=== PATIENT | female | born 1940 | race Two or more races ===

== ENCOUNTER 2018-10-01 15:39 | Emergency (ER) | payer MEDICARE, OTHER ==
[~2018-10-01] VITALS: Ht 149.9 cm; Wt 52.2 kg
--- NOTE | 2018-10-01 15:50 | NUR ---
C/O CONSTIPATION, LAST BM YESTERDAY. DENIES ABDOMINAL PAIN, N/V. NO OTHER COMPLAINTS AT THIS TIME. PLACED IN GOWN AND MADE COMFORTABLE. READY FOR EVAL.
[2018-10-01] MEDS ORDERED: IV NS 0.9% 1,000 ML BAG IV ONE (16:00)
[2018-10-01 16:05] LABS: BASOPHILS % (AUTO) 0.5 % (0.0-2.0); EOSINOPHILS % (AUTO) 0.6 % (0.0-6.0); HEMATOCRIT 38 % (33-45); HEMOGLOBIN 12.8 g/dL (11.5-14.8); LYMPHOCYTES # (AUTO) 1.7 /CMM (0.8-4.8); LYMPHOCYTES % (AUTO) 18.2 % (20.0-44.0); MEAN CORPUSCULAR HGB CONC 34 g/dl (31.0-36.0); MEAN CORPUSCULAR VOLUME 81 fL (82-100); MONOCYTES # (AUTO) 0.4 /CMM (0.1-1.30); MONOCYTES % (AUTO) 4.8 % (2.0-12.0); NEUTROPHILS % (AUTO) 75.9 % (43.0-81.0); PLATELET COUNT (AUTO) 253 /CMM (150-450); RED BLOOD CELL COUNT(AUTO) 4.65 MIL/uL (4.0-5.2); WHITE BLOOD COUNT (AUTO) 9.2 K/uL (4.3-11.0)
[2018-10-01 16:24] LABS: CALCIUM, SERUM 8.7 mg/dL (8.5-10.1); CARBON DIOXIDE 24 mmol/L (21-32); CHLORIDE 86 mmol/L (98-107); CREATININE 0.6 mg/dL (0.6-1.3); GLUCOSE 100 mg/dL (74-106); POTASSIUM 3.5 mmol/L (3.5-5.1); UREA NITROGEN, BLOOD 12 mg/dL (7-18)
[2018-10-01 16:25] LABS: SODIUM SERUM 120 mmol/L (136-145)
[2018-10-01 16:33] LABS: BILIRUBIN,DIRECT 0.2 mg/dL (0.0-0.2); BILIRUBIN,TOTAL 0.7 mg/dL (0.2-1.0)
[2018-10-01 16:34] LABS: ALKALINE PHOSPHATASE 85 U/L (46-116); ASPARTATE AMINOTRANSFERASE 39 U/L (15-37)
[2018-10-01 16:35] LABS: ALANINE AMINOTRANSFERASE 38 U/L (12-78); ALBUMIN 3.6 g/dL (3.4-5.0); LIPASE 72 U/L (73-393); TOTAL PROTEIN, SERUM 6.8 g/dL (6.4-8.2)
--- NOTE | 2018-10-01 16:40 | NUR ---
URINE COLLECTED AND SENT TO STAT LAB
[2018-10-01 16:54] LABS: BILIRUBIN,URINE Negative (NEGATIVE); BLOOD, URINE Trace-intact Ery/uL (NEGATIVE); COLOR,URINE Yellow (YELLOW); KETONES,URINE 40 (NEGATIVE); LEUKOCYTE ESTERASE ,URINE Negative (NEGATIVE); NITRITE, URINE Negative (NEGATIVE); PH,URINE 7.5 (5.0-8.0); PROTEIN,URINE Negative (NEGATIVE); UGLUCOSE Negative (NEGATIVE); UROBILINOGEN,URINE 0.2 EU/dL (0.2)
[2018-10-01 16:55] LABS: APPEARANCE,URINE SLIGHTLY HAZY (CLEAR)
[2018-10-01 17:12] LABS: SQUAMOUS EPITHELIAL CELL,UR Few /HPF (None Seen)
[2018-10-01 17:13] LABS: BACTERIA,URINE Moderate /HPF (None Seen); WBC,URINE 0-2 /HPF (0-3)
--- NOTE | 2018-10-01 18:15 | NUR ---
IV removed. Catheter intact and site benign. Pressure and 4x4 applied to site. No bleeding noted.Patient discharged to home in stable condition. Written and verbal after care instructions given. Patient verbalizes understanding of instruction.
[2018-10-01 18:26] VITALS: BP 138/82
== END 2018-10-01 18:15 | disposition home or self-care (01) ==
LOC: ER 15:41
DX: K59.00 Constipation, unspecified (principal); R59.0 Localized enlarged lymph nodes; E87.1 Hypo-osmolality and hyponatremia
CPT/HCPCS: 36415; 74176; 80048; 80076; 81001; 83690; 85025; 87086; 99284; J7030; 81000-TC

== ENCOUNTER 2024-09-09 14:14 | Inpatient (IN) | payer MEDICARE, OTHER ==
[~2024-09-09] VITALS: Ht 144.8 cm; Wt 36.7 kg
[2024-09-09 14:30] VITALS: TEMP 98.4
[2024-09-09] MEDS: IV NS 0.9% 1,000 ML BAG IV ONE ×2 (15:00→22:30)
[2024-09-09 15:07] LABS: BASOPHILS % (AUTO) 0.1 % (0.0-2.0); HEMATOCRIT 41 % (33-45); HEMOGLOBIN 13.3 g/dL (11.5-14.8); LYMPHOCYTES # (AUTO) 1.2 K/uL (0.8-4.8); LYMPHOCYTES % (AUTO) 9.5 % (20.0-44.0); MEAN CORPUSCULAR HEMOGLOBIN 27 PG (26.0-33.0); MEAN CORPUSCULAR HGB CONC 32 g/dl (31.0-36.0); MEAN CORPUSCULAR VOLUME 83 fL (82-100); MONOCYTES # (AUTO) 0.8 K/uL (0.1-1.30); MONOCYTES % (AUTO) 6.9 % (2.0-12.0); NEUTROPHILS # (AUTO) 10.1 K/uL (1.8-8.9); NEUTROPHILS % (AUTO) 83.5 % (43.0-81.0); PLATELET COUNT (AUTO) 365 K/uL (150-450); RED BLOOD CELL COUNT(AUTO) 4.96 MIL/uL (4.0-5.2); RED CELL DISTRIBUTION WIDTH 13.7 % (11.5-15.0); WHITE BLOOD COUNT (AUTO) 12.2 K/uL (4.3-11.0)
[2024-09-09 15:20] LABS: CALCIUM, SERUM 9.6 mg/dL (8.5-10.1); CARBON DIOXIDE 22 mmol/L (21-32); CHLORIDE 96 mmol/L (98-107); CREATININE 0.7 mg/dL (0.6-1.3); GLUCOSE 119 mg/dL (74-106); POTASSIUM 3.5 mmol/L (3.5-5.1); SODIUM SERUM 133 mmol/L (136-145); UREA NITROGEN, BLOOD 44 mg/dL (7-18)
[2024-09-09 15:22] LABS: ALANINE AMINOTRANSFERASE 61 U/L (12-78); ALBUMIN 4.8 g/dL (3.4-5.0); ALKALINE PHOSPHATASE 98 U/L (46-116); ASPARTATE AMINOTRANSFERASE 93 U/L (15-37); BILIRUBIN,DIRECT 0.3 mg/dL (0.0-0.2); BILIRUBIN,TOTAL 1.2 mg/dL (0.2-1.0); TOTAL PROTEIN, SERUM 7.6 g/dL (6.4-8.2)
[2024-09-09] MEDS ORDERED: SODI100037 PO (16:22)
[2024-09-09] MEDS ORDERED: LEVO25TA9 PO (16:22)
[2024-09-09] MEDS ORDERED: VITA-339 PO (16:24)
[2024-09-09] MEDS ORDERED: ONDANSETRON HCL/PF 4 MG/2 ML VIAL IVP PRN (16:30)
[2024-09-09] MEDS ORDERED: ACETAMINOPHEN 325 MG TABLET PO PRN (16:30)
[2024-09-09] MEDS ORDERED: MAG HYDROX/AL HYDROX/SIMETH 30 ML UDC PO PRN (16:30)
[2024-09-09] MEDS ORDERED: ZOLPIDEM TARTRATE 5 MG TABLET PO PRN (16:30)
[2024-09-09] MEDS ORDERED: MAGNESIUM HYDROXIDE 30 ML UDC PO PRN (16:30)
[2024-09-09] MEDS ORDERED: IV NS 0.9% 1,000 ML IV PRN (16:30)
[2024-09-09] MEDS ORDERED: Z GUARD REMEDY 4 OZ OINT TP PRN (16:30)
[2024-09-09 22:00] VITALS: BP 120/64; O2SAT 99
[2024-09-10] MEDS ORDERED: PANTOPRAZOLE 40 MG TABLET.DR PO SCH (07:30)
== END 2024-09-09 19:51 | disposition short-term general hospital (02) | DRG 86 ==
LOC: ER 14:31 → TELE 16:17
PROVIDERS: ADMIT Nurse Practitioner Acute Care; ATTEND Nurse Practitioner Acute Care
DX: S06.5X0A Traumatic subdural hemorrhage without loss of consciousness, initial encounter (principal); M62.82 Rhabdomyolysis; R64 Cachexia; Z68.1 Body mass index [BMI] 19.9 or less, adult; S30.0XXA Contusion of lower back and pelvis, initial encounter; S40.012A Contusion of left shoulder, initial encounter; Y92.039 Unspecified place in apartment as the place of occurrence of the external cause; W19.XXXA Unspecified fall, initial encounter; Z79.890 Hormone replacement therapy
CPT/HCPCS: 36415; 70450-TC; 71045-TC; 72125-TC; 72170-TC; 73060-TC; 73080-TC; 73502; 80048-TC; 80076-TC; 82550-TC; 82553; 84484-TC; 85025-TC; G0378

== ENCOUNTER 2024-12-17 12:58 | Inpatient (IN) | payer MEDICARE, OTHER ==
[~2024-12-17] VITALS: Ht 154.9 cm; Wt 41.7 kg
[~2024-12-17 12:58] MED LIST: LEVO25TA9 PO; SODI100037 PO; VITA-339 PO
[2024-12-17] MEDS ORDERED: MORPHINE SULFATE INJ 2 MG/ML DISP.SYRIN ONE (13:28)
[2024-12-17] MEDS ORDERED: ONDANSETRON HCL/PF 4 MG/2 ML VIAL ONE (13:28)
[2024-12-17] MEDS: IV NS 0.9% 500 ML BAG IV ONE (13:30)
[2024-12-17] MEDS: MORPHINE SULFATE INJ 2 MG/ML DISP.SYRIN IV ONE (13:33)
[2024-12-17] MEDS: ONDANSETRON HCL/PF 4 MG/2 ML VIAL IVP ONE (13:33)
[2024-12-17 13:38] LABS: PLATELET COUNT (AUTO) 269 K/uL (150-450); RED BLOOD CELL COUNT(AUTO) 4.52 MIL/uL (4.0-5.2); RED CELL DISTRIBUTION WIDTH 13.8 % (11.5-15.0); WHITE BLOOD COUNT (AUTO) 11.1 K/uL (4.3-11.0)
[2024-12-17 13:45] LABS: CALCIUM, SERUM 8.7 mg/dL (8.5-10.1); CREATININE 0.7 mg/dL (0.6-1.3); SODIUM SERUM 133.0 mmol/L (136-145); UREA NITROGEN, BLOOD 20.0 mg/dL (7-18)
[2024-12-17 13:51] LABS: INR 1.06 (0.91-1.10)
[2024-12-17] MEDS ORDERED: IOHEXOL-300 100 ML VIAL IV ONE (14:07)
[2024-12-17] MEDS ORDERED: IV NS 0.9% 250 ML IV ONE (14:07)
[2024-12-17] MEDS ORDERED: VITAMIN K2 PO SCH (16:00)
[2024-12-17] MEDS ORDERED: ONDANSETRON HCL/PF 4 MG/2 ML VIAL IVP PRN (16:00)
[2024-12-17] MEDS ORDERED: VITAMIN D3 PO SCH (16:00)
[2024-12-17] MEDS ORDERED: MAG HYDROX/AL HYDROX/SIMETH 30 ML UDC PO PRN (16:00)
[2024-12-17] MEDS ORDERED: HYDROCODONE/APAP 5/325MG TABLET PO PRN (16:00)
[2024-12-17 17:10] VITALS: BP 157/89; TEMP 98.5; O2SAT 96
[2024-12-17] MEDS: IV NS 0.9% 1,000 ML IV PRN (17:41)
[2024-12-17] MEDS: SODIUM CHLORIDE 1000 MG TABLET PO SCH (17:41)
[2024-12-17] MEDS: ENOXAPARIN SODIUM 40 MG/0.4 ML DISP.SYRIN SQ SCH (17:42)
[2024-12-17 20:00] VITALS: BP 140/79; TEMP 97.3; O2SAT 96
[2024-12-18 04:00] VITALS: BP 165/82; TEMP 97.2; O2SAT 99
[2024-12-18] MEDS: MORPHINE SULFATE INJ 2 MG/ML DISP.SYRIN IV PRN (04:20)
[2024-12-18 04:46] VITALS: BP 159/86; O2SAT 99
[2024-12-18 07:23] LABS: PLATELET COUNT (AUTO) 239 K/uL (150-450); RED BLOOD CELL COUNT(AUTO) 5.00 MIL/uL (4.0-5.2); RED CELL DISTRIBUTION WIDTH 13.8 % (11.5-15.0); WHITE BLOOD COUNT (AUTO) 8.4 K/uL (4.3-11.0)
[2024-12-18 07:35] LABS: CALCIUM, SERUM 8.4 mg/dL (8.5-10.1); CREATININE 0.7 mg/dL (0.6-1.3); PHOSPHORUS 2.9 mg/dL (2.5-4.9); SODIUM SERUM 132.0 mmol/L (136-145); UREA NITROGEN, BLOOD 11.0 mg/dL (7-18)
[2024-12-18] MEDS: LEVOTHYROXINE SODIUM 25 MCG TABLET PO SCH (08:12)
[2024-12-18 12:00] VITALS: BP 181/87; TEMP 97.7; O2SAT 99
[2024-12-18 20:00] VITALS: BP 176/86; TEMP 98.1; O2SAT 98
[2024-12-19 04:00] VITALS: BP 169/92; TEMP 98; O2SAT 98
[2024-12-19] MEDS: hydrALAZINE HCL IV 20 MG VIAL IV ONE (06:28)
[2024-12-19 09:47] LABS: LDL 83.0 mg/dL (0-99)
[2024-12-19 12:00] VITALS: BP 130/90; TEMP 99.5; O2SAT 100
[2024-12-19] MEDS ORDERED: BUPIVACAINE 0.25% 75 MG/30 ML VIAL ONE (15:26)
[2024-12-19] MEDS ORDERED: ROCURONIUM BROMIDE 50 MG/5 ML ONE (17:27)
[2024-12-19] MEDS ORDERED: TRANEXAMIC ACID 1,000 MG/10 ML VIAL ONE (17:27)
[2024-12-19] MEDS ORDERED: FENTANYL PF 100MCG/2ML AMPUL ONE (17:50)
[2024-12-19] MEDS ORDERED: ALBUMIN 5% 250 ML IV ONE ×2 (18:55→19:02)
[2024-12-19 20:00] VITALS: BP 167/72; TEMP 97.3; O2SAT 98
[2024-12-19] MEDS ORDERED: FENTANYL PF 100MCG/2ML AMPUL IV PRN ×2 (20:30)
[2024-12-19] MEDS ORDERED: ONDANSETRON HCL/PF 4 MG/2 ML VIAL IVP PRN (20:30)
[2024-12-19] MEDS ORDERED: LABETALOL 20 MG/4 ML VIAL IV PRN (20:30)
[2024-12-19 21:15] VITALS: BP 154/83; TEMP 97.3; O2SAT 98
[2024-12-19 21:30] VITALS: BP 146/80; TEMP 97.6; O2SAT 97
[2024-12-19 22:00] VITALS: BP 146/69; TEMP 97.8; O2SAT 98
[2024-12-20] MEDS ORDERED: CEFAZOLIN 2 GM ONE (02:38)
[2024-12-20] MEDS: CEFAZOLIN 2 GM in IV D5W 100 ML IV SCH (02:56)
[2024-12-20] MEDS ORDERED: CEFAZOLIN 2 GM in IV D5W 100 ML IV SCH (03:00)
[2024-12-20 04:00] VITALS: BP 110/60; TEMP 97.9; O2SAT 99
[2024-12-20 06:58] LABS: PLATELET COUNT (AUTO) 195 K/uL (150-450); RED BLOOD CELL COUNT(AUTO) 3.80 MIL/uL (4.0-5.2); RED CELL DISTRIBUTION WIDTH 13.9 % (11.5-15.0); WHITE BLOOD COUNT (AUTO) 10.1 K/uL (4.3-11.0)
[2024-12-20 07:41] LABS: CALCIUM, SERUM 8.3 mg/dL (8.5-10.1); CREATININE 0.5 mg/dL (0.6-1.3); PHOSPHORUS 2.2 mg/dL (2.5-4.9); SODIUM SERUM 131.0 mmol/L (136-145); UREA NITROGEN, BLOOD 11.0 mg/dL (7-18)
[2024-12-20] MEDS: POTASSIUM CHLORIDE 20 MEQ TAB.PRT.SR PO SCH (08:30)
[2024-12-20] MEDS: NEUTRA PHOS 1 POWD.PACKET PO SCH (08:31)
[2024-12-20 16:00] VITALS: BP 141/71; TEMP 98.3; O2SAT 96
[2024-12-20] MEDS: LORAZEPAM 0.5 MG TABLET PO ONE (18:51)
[2024-12-20] MEDS ORDERED: LEVE500T9 PO (19:36)
[2024-12-20] MEDS ORDERED: FAMO-131 PO (19:36)
[2024-12-20 20:00] VITALS: BP 163/86; TEMP 98.1; O2SAT 95
[2024-12-20] MEDS: SENNOSIDES 8.6 MG TABLET PO SCH (21:14)
[2024-12-20] MEDS: ENOXAPARIN SODIUM 40 MG/0.4 ML DISP.SYRIN SQ SCH (21:16)
[2024-12-21] MEDS: ACETAMINOPHEN 325 MG TABLET PO PRN (00:19)
[2024-12-21 04:16] VITALS: BP 146/80; TEMP 98; O2SAT 95
[2024-12-21 07:46] LABS: PLATELET COUNT (AUTO) 221 K/uL (150-450); RED BLOOD CELL COUNT(AUTO) 3.73 MIL/uL (4.0-5.2); RED CELL DISTRIBUTION WIDTH 13.9 % (11.5-15.0); WHITE BLOOD COUNT (AUTO) 7.8 K/uL (4.3-11.0)
[2024-12-21 08:00] VITALS: BP 104/57; TEMP 98.4; O2SAT 96
[2024-12-21 08:22] LABS: CALCIUM, SERUM 8.1 mg/dL (8.5-10.1); CREATININE 0.5 mg/dL (0.6-1.3); PHOSPHORUS 1.4 mg/dL (2.5-4.9); UREA NITROGEN, BLOOD 11.0 mg/dL (7-18)
[2024-12-21 08:34] LABS: SODIUM SERUM 127.0 mmol/L (136-145)
[2024-12-21] MEDS ORDERED: POTASSIUM CHLORIDE 20 MEQ POWDER PACKET PO ONE (09:35)
[2024-12-21] MEDS: POTASSIUM CHLORIDE 20 MEQ POWDER PACKET PO SCH (10:07)
[2024-12-21] MEDS: NEUTRA PHOS 1 POWD.PACKET PO SCH (10:16)
[2024-12-21 15:59] LABS: ASPARTATE AMINOTRANSFERASE 28.0 U/L (15-37); CALCIUM, SERUM 8.2 mg/dL (8.5-10.1); CREATININE 0.5 mg/dL (0.6-1.3); SODIUM SERUM 128.0 mmol/L (136-145); TOTAL PROTEIN, SERUM 5.9 g/dL (6.4-8.2); UREA NITROGEN, BLOOD 12.0 mg/dL (7-18)
[2024-12-21 16:00] VITALS: BP 140/84; TEMP 98.8; O2SAT 97
[2024-12-21] MEDS ORDERED: NEUTRA PHOS 1 POWD.PACKET PO ONE (16:00)
[2024-12-21 18:12] LABS: APPEARANCE,URINE CLOUDY (CLEAR); BLOOD, URINE TRACE-INTA Ery/uL (NEGATIVE); LEUKOCYTE ESTERASE ,URINE 2+ (NEGATIVE); NITRITE, URINE POSITIVE (NEGATIVE); UGLUCOSE NEGATIVE (NEGATIVE)
[2024-12-21 18:17] LABS: ADD URINE CULTURE YES
[2024-12-21 19:12] LABS: URINE SODIUM, RANDOM 125 mmol/l (40-220)
[2024-12-21 20:00] VITALS: BP 128/84; TEMP 100.9; O2SAT 96
[2024-12-22 04:00] VITALS: BP 115/69; TEMP 98; O2SAT 98
[2024-12-22 08:00] VITALS: BP 136/79; TEMP 98.1; O2SAT 99
[2024-12-22 08:40] LABS: PLATELET COUNT (AUTO) 218 K/uL (150-450); RED BLOOD CELL COUNT(AUTO) 3.36 MIL/uL (4.0-5.2); RED CELL DISTRIBUTION WIDTH 14.1 % (11.5-15.0); WHITE BLOOD COUNT (AUTO) 7.9 K/uL (4.3-11.0)
[2024-12-22 08:51] LABS: CALCIUM, SERUM 8.0 mg/dL (8.5-10.1); CREATININE 0.4 mg/dL (0.6-1.3); SODIUM SERUM 132.0 mmol/L (136-145); UREA NITROGEN, BLOOD 10.0 mg/dL (7-18)
[2024-12-22 08:55] LABS: PHOSPHORUS 1.9 mg/dL (2.5-4.9)
[2024-12-22] MEDS: CEFTRIAXONE 1 G in IV D5W 50 ML IV SCH (09:12)
[2024-12-22] MEDS ORDERED: POTASSIUM CHLORIDE 20 MEQ TAB.PRT.SR PO SCH (09:30)
[2024-12-22] MEDS ORDERED: POTASSIUM CL IV PRN (09:54)
[2024-12-22] MEDS ORDERED: PERIPHER IV PRN (09:54)
[2024-12-22] MEDS ORDERED: NS 0.9% IV PRN (09:54)
[2024-12-22] MEDS ORDERED: POTASSIUM PHOSPHATE MM 5 MMOL in IV NS 0.9% 100 ML IV SCH (10:00)
[2024-12-22] MEDS: POTASSIUM PHOSPHATE MM 5 MMOL in IV NS 0.9% 100 ML IV SCH (11:41)
[2024-12-22 16:00] VITALS: BP 151/79; TEMP 99; O2SAT 99
[2024-12-22] MEDS: POTASSIUM CL IV SCH (17:16)
[2024-12-22] MEDS: NS 0.9% IV SCH (17:16)
[2024-12-22] MEDS: PERIPHER IV SCH (17:16)
[2024-12-22] MEDS ORDERED: IV NS 0.9% 250 ML IV ONE (18:40)
[2024-12-22] MEDS ORDERED: IOHEXOL-350 100 ML VIAL IV ONE (18:40)
[2024-12-22 20:00] VITALS: BP 147/72; TEMP 97.8; O2SAT 100
[2024-12-23 04:00] VITALS: BP 150/83; TEMP 97.7; O2SAT 100
[2024-12-23 07:20] LABS: PLATELET COUNT (AUTO) 253 K/uL (150-450); RED BLOOD CELL COUNT(AUTO) 3.31 MIL/uL (4.0-5.2); RED CELL DISTRIBUTION WIDTH 13.8 % (11.5-15.0); WHITE BLOOD COUNT (AUTO) 7.5 K/uL (4.3-11.0)
[2024-12-23 07:42] LABS: CALCIUM, SERUM 8.0 mg/dL (8.5-10.1); CREATININE 0.5 mg/dL (0.6-1.3); PHOSPHORUS 2.1 mg/dL (2.5-4.9); SODIUM SERUM 130.0 mmol/L (136-145); UREA NITROGEN, BLOOD 12.0 mg/dL (7-18)
[2024-12-23 08:00] VITALS: BP 158/86; TEMP 97.6; O2SAT 98
[2024-12-23] MEDS ORDERED: POTASSIUM CHLORIDE 20 MEQ POWDER PACKET PO SCH (09:00)
[2024-12-23] MEDS: NEUTRA PHOS 1 POWD.PACKET PO ONE (09:26)
[2024-12-23] MEDS: VALSARTAN 80 MG TABLET PO SCH (09:30)
[2024-12-23] MEDS: POTASSIUM CHLORIDE 20 MEQ TAB.PRT.SR PO SCH (09:30)
[2024-12-23 13:15] LABS: CALCIUM, SERUM 8.2 mg/dL (8.5-10.1); CREATININE 0.6 mg/dL (0.6-1.3); SODIUM SERUM 131.0 mmol/L (136-145); UREA NITROGEN, BLOOD 12.0 mg/dL (7-18)
[2024-12-23 13:23] VITALS: BP 126/71
[2024-12-23] MEDS ORDERED: LEVETIRACETAM (250 MG) 250 MG TABLET PO SCH (21:00)
[2024-12-24] MEDS ORDERED: FAMOTIDINE (20 MG) 20 MG TABLET PO SCH (07:30)
== END 2024-12-23 17:00 | DRG 521 ==
LOC: ER 13:04 → MEDSG1 16:08
PROVIDERS: ADMIT Nurse Practitioner Acute Care
PROC: 0SRS0J9 Replacement of Left Hip Joint, Femoral Surface with Synthetic Substitute, Cemented, Open Approach (ICD-10-PCS; principal; 2024-12-19 16:30)
DX: S72.012A Unspecified intracapsular fracture of left femur, initial encounter for closed fracture (principal); G93.41 Metabolic encephalopathy; I62.03 Nontraumatic chronic subdural hemorrhage; E87.1 Hypo-osmolality and hyponatremia; D68.59 Other primary thrombophilia; N39.0 Urinary tract infection, site not specified; G96.00 Cerebrospinal fluid leak, unspecified; W01.0XXA Fall on same level from slipping, tripping and stumbling without subsequent striking against object, initial encounter; K44.9 Diaphragmatic hernia without obstruction or gangrene; Y92.009 Unspecified place in unspecified non-institutional (private) residence as the place of occurrence of the external cause; K76.89 Other specified diseases of liver; N32.89 Other specified disorders of bladder; D72.829 Elevated white blood cell count, unspecified; Z79.890 Hormone replacement therapy; Z79.899 Other long term (current) drug therapy; E03.9 Hypothyroidism, unspecified; Z74.09 Other reduced mobility; B96.20 Unspecified Escherichia coli [E. coli] as the cause of diseases classified elsewhere; D64.9 Anemia, unspecified; E78.5 Hyperlipidemia, unspecified; E87.6 Hypokalemia; M81.0 Age-related osteoporosis without current pathological fracture
CPT/HCPCS: 36415; 70450-TC; 70496-TC; 70498-TC; 71045-TC; 72170-TC; 73552; 73564-TC; 80048-TC; 80053-TC; 80061-TC; 81001; 82105; 83735-TC; 83935-TC; 84100-TC; 84300-TC; 84439-TC; 84443-TC; 85025-TC; 85027-TC; 85730-TC; 86850-TC; 87086-TC; 87186-TC; 88305-TC; 88311-TC; 92526; 92611; 93307-TC; 97110-TC; 97116-TC; 97530-TC; 97535-TC; A4217; A4223; A6209; A6213; A6254; C1713; C1776; G0378; J0360; J0690; J0696; J1100; J1650; J2270; J2405; J2704; J2765; J3010; J3480; J3490; J7030; J7040; J7050; J7060; P9045; Q9967